=== PATIENT | female | born 1940 | race Caucasian/White ===

== ENCOUNTER → 2018-11-16 | Outpatient (CLI) | payer MEDICARE, OTHER ==
--- NOTE | 2018-11-16 11:59 | Diagnostic Imaging Report ---
Indication: Abdominal pain Technique: Gann-scale and duplex images of the upper abdomen were obtained Comparison: 06/14/2015 Findings: Gallbladder is unremarkable, without stones, wall thickening, nor pericholecystic fluid. Sonographic Manley's sign is negative. Common bile duct measures 6 mm in diameter. No intrahepatic biliary ductal dilatation. Liver demonstrates multiple cysts. It demonstrates coarsened echogenicity. There is surface nodularity. Portal vein and hepatic veins are patent. Pancreas is unremarkable. Spleen is unremarkable. Left kidney measures 9.3 cm in length. Right kidney measures 10.6 cm length. Both kidneys demonstrate normal echogenicity. There is no hydronephrosis. No focal abnormality . Non-aneurysmal abdominal aorta . Impression: Coarsened hepatic echogenicity, surface nodularity suggesting cirrhotic change. Multiple hepatic cysts Negative for gallstones or dilated bile ducts
== END | disposition home or self-care (01) ==
LOC: ULS 09:31
DX: K74.60 Unspecified cirrhosis of liver (principal); K76.89 Other specified diseases of liver
CPT/HCPCS: 76700

== ENCOUNTER 2019-05-25 13:02 | Outpatient (CLI) | payer MEDICARE, OTHER ==
--- NOTE | 2019-05-25 15:41 | Diagnostic Imaging Report ---
Indication: Abdominal pain, history of hepatitis C Technique: Gann-scale and duplex images of the upper abdomen were obtained Comparison: 11/16/2018 Findings: Gallbladder is unremarkable, without stones, wall thickening, nor pericholecystic fluid. Sonographic Manley's sign is negative. Common bile duct measures 3 mm in diameter. No intrahepatic biliary ductal dilatation. There are demonstrates coarsened echogenicity. It demonstrates mild surface nodularity. Multiple hepatic cysts are incidentally noted. Portal vein and hepatic veins are patent. Pancreas is unremarkable. Spleen is unremarkable. Left kidney measures 9.1 cm in length. Right kidney measures 11.1 cm length. Both kidneys demonstrate normal echogenicity. Left kidney demonstrates a cyst. There is also a 7 mm calculus in the upper pole renal sinus. No hydronephrosis . Non-aneurysmal abdominal aorta . Impression: Coarsened hepatic echogenicity and hepatic surface nodularity, consistent with cirrhotic change, also previously described Nonobstructive left upper pole intrarenal calculus, not evident previously. Incidental finding hepatic and left renal cysts
== END 2019-05-25 15:02 | disposition home or self-care (01) ==
LOC: ULS 13:02
DX: R10.9 Unspecified abdominal pain (principal); N28.1 Cyst of kidney, acquired; K76.89 Other specified diseases of liver; Z86.19 Personal history of other infectious and parasitic diseases
CPT/HCPCS: 76700